=== PATIENT | male | born 1985 | race Caucasian/White ===

== ENCOUNTER 2018-09-02 04:27 | Emergency (ER) | payer SELFPAY ==
[2018-09-02] MEDS ORDERED: fentaNYL 100 MCG/2 ML SDV IM ONE (04:55)
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
== END 2018-09-02 05:09 | disposition home or self-care (01) ==
LOC: JP.ED 04:27
DX: H66.001 Acute suppurative otitis media without spontaneous rupture of ear drum, right ear (principal); Z96.22 Myringotomy tube(s) status
CPT/HCPCS: 96372; 99282; J3010